=== PATIENT | female | born 1975 | race African-American/Black ===

== ENCOUNTER 2024-06-25 19:27 | Emergency (ER) | payer OTHER ==
[2024-06-25 19:43] VITALS: RESP 18; BMI 34.1
[2024-06-25 20:47] LABS: ABSOLUTE IMMATURE GRANULOCYTES 0.02 x10^3/uL (0.0-0.031); BASOPHILS # 0.05 x10^3/uL (0.01-0.08); EOSINOPHIL % 4.9 % (0.7-5.8); EOSINOPHILS # 0.22 x10^3/uL (0.04-0.36); HEMATOCRIT 28.2 % (34.1-44.9); HEMOGLOBIN 8.2 g/dL (11.2-15.7); MCHC 29.1 g/dl (32.2-35.5); MEAN CELL VOLUME 72.9 fl (79.4-94.8); MEAN PLT VOLUME 9.4 fl (9.4-12.3); MONOCYTE # 0.62 x10^3/uL (0.24-0.86); MONOCYTE % 13.9 % (4.7-12.5); PLATELET COUNT 416 x10^3/uL (182-369); RDW 19.5 % (12.2-17.1)
[2024-06-25 21:06] LABS: POTASSIUM 4.1 mmol/L (3.5-5.1)
[2024-06-25 21:08] LABS: CALCIUM 8.9 mg/dL (8.5-10.1)
[2024-06-25 21:10] LABS: ALBUMIN 3.4 g/dl (3.4-5.0); BLOOD UREA NITROGEN 10.4 mg/dL (7-18)
[2024-06-25 21:13] LABS: CREATININE 0.6 mg/dL (0.55-1.3)
[2024-06-25 21:14] LABS: BILIRUBIN,TOTAL 0.5 mg/dL (0.2-1)
[2024-06-25 22:21] LABS: ACTIVATED PTT 25.8 SECONDS (25.2-36.5); INR 0.98 (0.83-1.09); PROTHROMBIN TIME (PATIENT) 10.7 SEC (9.7-13.0)
[2024-06-25 22:41] LABS: EPI CELLS 5 /uL (0-25.1); HYALINE CASTS 0 /uL (0-3.1); PH,URINE 5.5 (5.0-8.0); URINE APPEARANCE CLEAR; URINE BACTERIA 9 /uL (0-1359); URINE BILIRUBIN NEGATIVE (NEGATIVE); URINE COLOR YELLOW; URINE GLUCOSE (UA) NEGATIVE (NEGATIVE); URINE KETONE NEGATIVE (NEGATIVE); URINE LEUK ESTERASE NEGATIVE (NEGATIVE); URINE NITRITE NEGATIVE (NEGATIVE); URINE PROTEIN NEGATIVE (NEGATIVE); URINE RBC 3041 /uL (0-23.9); URINE UROBILINOGEN 0.2 mg/dL (0.2-1.0); URINE WBC 6 /uL (0-25.8)
[2024-06-26 00:23] LABS: ABSOLUTE IMMATURE GRANULOCYTES 0.01 x10^3/uL (0.0-0.031); BASOPHILS # 0.04 x10^3/uL (0.01-0.08); EOSINOPHIL % 5.6 % (0.7-5.8); EOSINOPHILS # 0.27 x10^3/uL (0.04-0.36); HEMATOCRIT 25.4 % (34.1-44.9); HEMOGLOBIN 7.4 g/dL (11.2-15.7); MCHC 29.1 g/dl (32.2-35.5); MEAN CELL VOLUME 72.8 fl (79.4-94.8); MEAN PLT VOLUME 9.7 fl (9.4-12.3); MONOCYTE # 0.73 x10^3/uL (0.24-0.86); MONOCYTE % 15.1 % (4.7-12.5); PLATELET COUNT 395 x10^3/uL (182-369); RDW 19.3 % (12.2-17.1)
[2024-06-26 02:29] VITALS: BP 155/89; PULSE 85; TEMP 97.2
== END 2024-06-26 02:49 | disposition left against medical advice (07) ==
LOC: JER 19:27
DX: D64.9 Anemia, unspecified (principal); N93.9 Abnormal uterine and vaginal bleeding, unspecified; R10.32 Left lower quadrant pain; R00.2 Palpitations; R07.9 Chest pain, unspecified
CPT/HCPCS: 36415; 76830-TC; 80053; 81003; 83735; 84484; 84703; 85025; 85610; 85730; 86850; 86900; 86901; 87086; 93005; 93010; 99285-25